=== PATIENT | male | born 1960 | race Caucasian/White ===

== ENCOUNTER → 2017-08-07 | Outpatient (CLI) | payer OTHER ==
[~2017-08-07] MED LIST: ALLERGY RELIEF10 M3 PO; ASPIR-LOW81 MG PO; ATENOLOL25 M1 PO; ATORVASTATIN CA40 MG PO; CLOPIDOGREL75 MG PO; FLEXERIL10 MG PO; HYDROCHLOROTHIA25 MG PO; IBUPROFEN800 MG PO; LISINOPRIL20 MG PO; LOPRESSOR50 MG PO; LYRICA150 MG PO; MORPHINE SULFA PO; NITROSTAT0.4 MG SL; PHENERGAN12.5 M1 PO
== END | disposition home or self-care (01) ==
DX: M16.12 Unilateral primary osteoarthritis, left hip (principal); R26.2 Difficulty in walking, not elsewhere classified; M25.552 Pain in left hip; M25.652 Stiffness of left hip, not elsewhere classified; M62.81 Muscle weakness (generalized); Z74.1 Need for assistance with personal care
CPT/HCPCS: 97161 GP; 97165 GO; 97535 GO

== ENCOUNTER 2017-08-27 21:40 | Inpatient (IN) | payer OTHER ==
[~2017-08-27] VITALS: Ht 172.7 cm; Wt 66.4 kg
[~2017-08-27 21:40] MED LIST changes: +MORPHINE SULFAT15 M1 PO; +OXYCONTIN10 MG PO
[2017-08-28 06:53] VITALS: BP 138/79
[2017-08-28 10:05] VITALS: BP 155/67
[2017-08-28 10:47] LABS: HEMATOCRIT 35.2 % (38.0-50.0); MCHC 34.4 G/DL (30.0-36.0); MCV 95.9 FL (86-99); PLATELET COUNT 191 K/uL (156-360); RBC DIS.WIDTH-CV 12.3 % (11.8-14.6); RBC DIS.WIDTH-SD 43.3 % (39-53); RED BLOOD COUNT 3.67 M/uL (4.00-5.50); WHITE BLOOD COUNT 7.1 K/uL (4.1-10.2)
[2017-08-28 10:56] LABS: HEMOGLOBIN 12.1 G/DL (12.5-16.6)
[2017-08-28 15:41] VITALS: BP 121/71
[2017-08-28 20:15] VITALS: BP 151/81
[2017-08-29 00:20] VITALS: BP 161/79
[2017-08-29 04:21] VITALS: BP 188/90
[2017-08-29 05:20] LABS: HEMATOCRIT 35.8 % (38.0-50.0); HEMOGLOBIN 12.1 G/DL (12.5-16.6); MCV 94.7 FL (86-99)
[2017-08-29 05:37] LABS: CHLORIDE 102 MEQ/L (99-109); CREATININE 0.9 MG/DL (0.6-1.3); GFR ESTIMATE (CALCULATED) > 59 mL/min/ (58.99-99999); GLUCOSE 121 mg/dL (70-99); SODIUM 133 MEQ/L (136-147); UREA NITROGEN (BUN) 15 mg/dL (9-23)
[2017-08-29 11:44] VITALS: BP 150/88
[2017-08-29 15:30] VITALS: BP 197/93
[2017-08-29 17:23] VITALS: BP 171/87
[2017-08-29 19:55] VITALS: BP 192/87
[2017-08-30 00:21] VITALS: BP 157/82
[2017-08-30 04:24] VITALS: BP 143/78
[2017-08-30 05:39] VITALS: BP 146/79
[2017-08-30 05:52] LABS: HEMOGLOBIN 11.8 G/DL (12.5-16.6); MCV 94.6 FL (86-99)
[2017-08-30 06:21] LABS: CHLORIDE 100 MEQ/L (99-109); CREATININE 0.7 MG/DL (0.6-1.3); GFR ESTIMATE (CALCULATED) > 59 mL/min/ (58.99-99999); GLUCOSE 107 mg/dL (70-99); POTASSIUM 3.9 MEQ/L (3.7-5.4); SODIUM 136 MEQ/L (136-147); UREA NITROGEN (BUN) 11 mg/dL (9-23)
[2017-08-30 08:28] VITALS: BP 160/79
[2017-08-30] MEDS ORDERED: DOCUSATE SODIU100 MG PO (08:37)
[2017-08-30] MEDS ORDERED: LOVENOX40 MG/0.4 SC (08:37)
[2017-08-30] MEDS ORDERED: CELECOXIB200 MG PO (08:37)
[2017-08-30] MEDS ORDERED: OXYCODONE HCL5 MG PO (08:37)
[2017-08-30 11:43] VITALS: BP 142/81
== END 2017-08-30 14:14 | disposition home health service (06) | DRG 470 ==
LOC: ENRESERV 21:40 → 2SOUTH 08-28 05:42 → 3WEST 08-28 09:53 → 2SOUTH 08-28 10:12 → 3WEST 08-30 14:14
PROVIDERS: Orthopaedic Surgery; Physician Assistant
PROC: 0SRB0JA Replacement of Left Hip Joint with Synthetic Substitute, Uncemented, Open Approach (ICD-10-PCS; principal; 2017-08-28)
DX: M16.12 Unilateral primary osteoarthritis, left hip (principal); I10 Essential (primary) hypertension; I25.10 Atherosclerotic heart disease of native coronary artery without angina pectoris; E78.00 Pure hypercholesterolemia, unspecified; G89.29 Other chronic pain; Z79.02 Long term (current) use of antithrombotics/antiplatelets; Z79.82 Long term (current) use of aspirin
CPT/HCPCS: 72170; 73501; 73522; 80048; 85014; 85018; 85027; 97530 GO; J0131; J0690; J1100; J1170; J1650; J1885; J2250; J2405; J3010; J7050; S0020